=== PATIENT | female | born 1970 | race African-American/Black ===

== ENCOUNTER → 2022-12-28 | Emergency (ER) | payer MEDICAID ==
[~2022-12-28] VITALS: Ht 170.2 cm; Wt 79.3 kg
[~2022-12-28] MED LIST: IBUP-2029 MT; IBUPROFEN 600MG TABLET PO ONE; TRAM50TA3 MT; TRAMADOL 50MG TABLET PO ONE
[2022-12-28 11:43] VITALS: BP 145/96
== END | disposition home or self-care (01) ==
LOC: ER 09:49
DX: I82.621 Acute embolism and thrombosis of deep veins of right upper extremity (principal); I10 Essential (primary) hypertension; Z88.0 Allergy status to penicillin
CPT/HCPCS: 93971; 99284